=== PATIENT | male | born 1970 | race Caucasian/White ===

== ENCOUNTER 2020-03-19 05:00 | Day surgery (SDC) | payer OTHER | END 2020-03-19 17:10 | disposition home or self-care (01) | LOC: CIR.AMB 05:00 → ADM 09:00 → CIR.AMB 14:45 | PROVIDERS: ATTEND Orthopaedic Surgery Hand Surgery | DX: S63.591A Other specified sprain of right wrist, initial encounter (principal) | CPT/HCPCS: 25820; 25332; 29846; C1776 ==